=== PATIENT | male | born 1995 | race Caucasian/White ===

== ENCOUNTER 2019-06-23 18:43 | Emergency (ER) | payer MEDICAID, OTHER ==
[~2019-06-23] VITALS: Ht 175.3 cm; Wt 89.0 kg
[2019-06-23 21:08] VITALS: BP 111/69
== END 2019-06-23 22:23 | disposition home or self-care (01) ==
LOC: ED 19:49
DX: K92.2 Gastrointestinal hemorrhage, unspecified (principal); R30.0 Dysuria; G89.29 Other chronic pain; R10.9 Unspecified abdominal pain; K62.89 Other specified diseases of anus and rectum
CPT/HCPCS: 36415; 80053; 81003; 83690; 85025; 87491; 87591; 99283; Q0162